=== PATIENT | female | born 1990 | race Two or more races ===

== ENCOUNTER 2020-10-22 13:03 | Day surgery (SDC) | payer OTHER | END 2020-10-23 01:50 | disposition home or self-care (01) | LOC: CIR.AMB 13:03 | PROVIDERS: ATTEND Obstetrics & Gynecology | DX: T83.89XA Other specified complication of genitourinary prosthetic devices, implants and grafts, initial encounter (principal); Z30.432 Encounter for removal of intrauterine contraceptive device; Z20.822 Contact with and (suspected) exposure to COVID-19 ==